=== PATIENT | male | born 1955 | race Caucasian/White ===

== ENCOUNTER 2019-02-27 14:40 | Outpatient (RCR) | payer MEDICAID ==
[2019-03-07] MEDS ORDERED: NICOTINE21 MG/24 H TD (00:37)
[2019-03-07] MEDS ORDERED: TEMAZEPAM30 M1 PO (00:37)
[2019-03-07] MEDS ORDERED: ALPRAZOLAM0.5 MG PO (00:37)
[2019-03-07] MEDS ORDERED: CHILDREN'S ASPI81 M1 PO (00:37)
[2019-03-07] MEDS ORDERED: ATORVASTATIN CA40 MG PO (00:38)
[2019-03-07] MEDS ORDERED: CLOPIDOGREL75 M2 PO (00:38)
[2019-03-07] MEDS ORDERED: LOPRESSOR 225 MG/TAB PO (00:38)
[2019-03-07] MEDS ORDERED: NITROGLYCERIN0.4 M1 SL (00:39)
[2019-03-07] MEDS ORDERED: BACLOFEN20 MG PO (00:39)
[2019-03-07] MEDS ORDERED: PERCOCET 325 MG1 TAB PO (02:44)
== END 2019-05-24 | disposition home or self-care (01) ==
LOC: CARDREHAB
DX: Z48.812 Encounter for surgical aftercare following surgery on the circulatory system (principal); Z95.1 Presence of aortocoronary bypass graft

== ENCOUNTER 2019-03-06 20:26 | Inpatient (IN) | payer MEDICAID ==
[~2019-03-06] VITALS: Ht 167.6 cm; Wt 53.0 kg
[2019-03-06 21:14] LABS: HEMATOCRIT 38.3 % (42.0-52.0); HEMOGLOBIN 12.7 g/dL (13.5-18.0); MEAN CELL VOLUME 93 fl (78-100); MEAN CORPUSCULAR HEMOGLOBIN 31 pg (27-31); MEAN CORPUSCULAR HGB CONC 33 g/dL (33-37); MEAN PLATELET VOLUME 9.5 fl (7.4-10.4); PLATELET COUNT 274 K/mm3 (130-400); RED BLOOD COUNT 4.12 M/mm3 (4.20-5.60); RED CELL DISTRIBUTION WIDTH 11.9 % (11.5-14.5); WHITE BLOOD COUNT 16.9 K/mm3 (4.8-10.8)
[2019-03-06 21:21] LABS: ALBUMIN 3.9 g/dL (3.4-4.8); POTASSIUM 3.9 mmol/L (3.5-5.1); SODIUM 137 mmol/L (136-145)
[2019-03-06 21:22] LABS: CALCIUM 9.2 mg/dL (8.3-10.5)
[2019-03-06 21:24] LABS: GLUCOSE 97 mg/dL (75-110); TOTAL PROTEIN 7.5 g/dL (6.2-8.1)
[2019-03-06 21:25] LABS: CARBON DIOXIDE 21 mmol/L (23-31); TOTAL BILIRUBIN 0.4 mg/dL (0.2-1.2)
[2019-03-06 21:26] LABS: ALCOHOL IN-HOUSE 15 mg/dL (<10)
[2019-03-06 21:29] LABS: AST-SGOT 127 U/L (5-34)
[2019-03-06 21:30] LABS: ALT/SGPT 54 U/L (0-55)
[2019-03-06 21:35] LABS: LYMPHOCYTE 7 % (20-51); MONOCYTE 6 % (3-10); NEUTROPHILS 87 % (42-75)
[2019-03-06 22:22] LABS: URINE APPEARANCE CLEAR; URINE BILIRUBIN NEGATIVE (NEGATIVE); URINE BLOOD TRACE (NEGATIVE); URINE COLOR YELLOW; URINE GLUCOSE NEGATIVE (NEGATIVE); URINE KETONE NEGATIVE (NEGATIVE); URINE LEUKOCYTE ESTERASE NEGATIVE (NEGATIVE); URINE NITRATE NEGATIVE (NEGATIVE); URINE PROTEIN(semi-quant) TRACE mg/dL (NEGATIVE); URINE UROBILINOGEN NORMAL (NORMAL); URINE WBC 0-1 /hpf (0-3)
[2019-03-07] VITALS (11 sets, daily range): BP systolic 154–192; BP diastolic 66–95
[2019-03-07] MEDS ORDERED: CHILDREN'S ASPI81 M1 PO (00:37)
[2019-03-07] MEDS ORDERED: ALPRAZOLAM0.5 MG PO (00:37)
[2019-03-07] MEDS ORDERED: TEMAZEPAM30 M1 PO (00:37)
[2019-03-07] MEDS ORDERED: NICOTINE21 MG/24 H TD (00:37)
[2019-03-07] MEDS ORDERED: CLOPIDOGREL75 M2 PO (00:38)
[2019-03-07] MEDS ORDERED: ATORVASTATIN CA40 MG PO (00:38)
[2019-03-07] MEDS ORDERED: LOPRESSOR 225 MG/TAB PO (00:38)
[2019-03-07] MEDS ORDERED: BACLOFEN20 MG PO (00:39)
[2019-03-07] MEDS ORDERED: NITROGLYCERIN0.4 M1 SL (00:39)
[2019-03-07] MEDS ORDERED: PERCOCET 325 MG1 TAB PO (02:44)
[2019-03-07 08:15] LABS: EOS # 0.1 (0.04-0.40); EOS % 0.4 % (0.0-4.0); HEMATOCRIT 35.5 % (42.0-52.0); HEMOGLOBIN 11.8 g/dL (13.5-18.0); LYMPH# 1.8 (1.50-4.00); MEAN CELL VOLUME 93 fl (78-100); MEAN CORPUSCULAR HEMOGLOBIN 31 pg (27-31); MEAN CORPUSCULAR HGB CONC 33 g/dL (33-37); MEAN PLATELET VOLUME 9.6 fl (7.4-10.4); NEU # 8.4 (1.40-6.50); PLATELET COUNT 239 K/mm3 (130-400); RED BLOOD COUNT 3.83 M/mm3 (4.20-5.60); WHITE BLOOD COUNT 11.3 K/mm3 (4.8-10.8)
[2019-03-08] VITALS (14 sets, daily range): BP systolic 136–210; BP diastolic 80–122
[2019-03-09] VITALS (11 sets, daily range): BP systolic 114–205; BP diastolic 68–100
[2019-03-10] VITALS (7 sets, daily range): BP systolic 111–196; BP diastolic 71–97
[2019-03-10 10:06] LABS: ALBUMIN 3.7 g/dL (3.4-4.8); POTASSIUM 3.2 mmol/L (3.5-5.1)
[2019-03-10 10:07] LABS: CALCIUM 9.3 mg/dL (8.3-10.5); EOS # 0.1 (0.04-0.40); EOS % 1.3 % (0.0-4.0); HEMATOCRIT 38.2 % (42.0-52.0); HEMOGLOBIN 13.3 g/dL (13.5-18.0); LYMPH# 1.2 (1.50-4.00); MEAN CELL VOLUME 87 fl (78-100); MEAN CORPUSCULAR HEMOGLOBIN 30 pg (27-31); MEAN CORPUSCULAR HGB CONC 35 g/dL (33-37); MEAN PLATELET VOLUME 9.3 fl (7.4-10.4); NEU # 6.3 (1.40-6.50); PLATELET COUNT 278 K/mm3 (130-400); RED CELL DISTRIBUTION WIDTH 11.8 % (11.5-14.5); WHITE BLOOD COUNT 8.7 K/mm3 (4.8-10.8)
[2019-03-10 10:08] LABS: TOTAL PROTEIN 6.9 g/dL (6.2-8.1)
[2019-03-10 10:10] LABS: TOTAL BILIRUBIN 0.7 mg/dL (0.2-1.2)
[2019-03-10 18:19] LABS: POTASSIUM 4.1 mmol/L (3.5-5.1)
[2019-03-10 18:21] LABS: CALCIUM 9.4 mg/dL (8.3-10.5)
[2019-03-10 23:30] LABS: FOLATE (FOLIC ACID) 16.1 ng/mL (7.0-31.4)
[2019-03-11 03:00] VITALS: BP 158/93
[2019-03-11 06:23] VITALS: BP 166/89
[2019-03-11 08:39] LABS: POTASSIUM 3.8 mmol/L (3.5-5.1)
[2019-03-11 08:40] LABS: CALCIUM 9.3 mg/dL (8.3-10.5)
[2019-03-11 10:30] VITALS: BP 166/108; BP 174/104
[2019-03-11 15:08] VITALS: BP 125/79
[2019-03-11 18:15] VITALS: BP 121/67
== END 2019-03-11 21:06 | disposition short-term general hospital (02) | DRG 897 ==
LOC: ED 20:26 → MED/SURG 03-07 00:45
PROVIDERS: Nurse Practitioner Primary Care; Physician Assistant; ADMIT Family Medicine
DX: F10.239 Alcohol dependence with withdrawal, unspecified (principal); E87.1 Hypo-osmolality and hyponatremia; R45.851 Suicidal ideations; F10.251 Alcohol dependence with alcohol-induced psychotic disorder with hallucinations; E87.6 Hypokalemia; I25.10 Atherosclerotic heart disease of native coronary artery without angina pectoris; I10 Essential (primary) hypertension; J44.9 Chronic obstructive pulmonary disease, unspecified; F31.9 Bipolar disorder, unspecified; Z95.1 Presence of aortocoronary bypass graft; F17.210 Nicotine dependence, cigarettes, uncomplicated; F12.10 Cannabis abuse, uncomplicated; G25.2 Other specified forms of tremor; Z66 Do not resuscitate
CPT/HCPCS: C9113; G0378; J0456; J1630; J1650; J2060; J3360; J3411; J3480; J3490; J7030; J7050